=== PATIENT | male | born 1940 | race Caucasian/White ===

== ENCOUNTER 2016-08-24 13:04 | Outpatient (CLI) | payer OTHER | END 2016-08-24 13:05 | LOC: LAB 13:04 | PROVIDERS: ATTEND Internal Medicine Cardiovascular Disease | DX: Z51.81 Encounter for therapeutic drug level monitoring (principal); Z79.01 Long term (current) use of anticoagulants; I48.0 Paroxysmal atrial fibrillation | CPT/HCPCS: 36415; 85610 ==

== ENCOUNTER 2016-09-21 12:27 | Outpatient (CLI) | payer OTHER | END 2016-09-21 12:30 | LOC: LAB 12:27 | PROVIDERS: ATTEND Internal Medicine Cardiovascular Disease | DX: Z51.81 Encounter for therapeutic drug level monitoring (principal); Z79.01 Long term (current) use of anticoagulants; I48.0 Paroxysmal atrial fibrillation | CPT/HCPCS: 36415; 85610 ==

== ENCOUNTER 2016-10-19 12:12 | Outpatient (CLI) | payer OTHER | END 2016-10-19 12:13 | LOC: LAB 12:12 | PROVIDERS: ATTEND Internal Medicine Cardiovascular Disease | DX: Z51.81 Encounter for therapeutic drug level monitoring (principal); Z79.01 Long term (current) use of anticoagulants; I48.0 Paroxysmal atrial fibrillation | CPT/HCPCS: 36415; 85610 ==

== ENCOUNTER 2016-11-02 07:56 | Outpatient (CLI) | payer OTHER | END 2016-11-02 07:57 | LOC: LAB 07:56 | PROVIDERS: ATTEND Internal Medicine Cardiovascular Disease | DX: Z51.81 Encounter for therapeutic drug level monitoring (principal); Z79.01 Long term (current) use of anticoagulants; I48.0 Paroxysmal atrial fibrillation | CPT/HCPCS: 36415; 85610 ==

== ENCOUNTER 2016-11-16 13:30 | Outpatient (CLI) | payer OTHER | END 2016-11-16 13:32 | LOC: LAB 13:30 | PROVIDERS: ATTEND Internal Medicine Cardiovascular Disease | DX: Z51.81 Encounter for therapeutic drug level monitoring (principal); Z79.01 Long term (current) use of anticoagulants; I48.0 Paroxysmal atrial fibrillation | CPT/HCPCS: 36415; 85610 ==

== ENCOUNTER 2016-11-30 10:57 | Outpatient (CLI) | payer OTHER | END 2016-11-30 11:00 | LOC: LAB 10:57 | PROVIDERS: ATTEND Internal Medicine Cardiovascular Disease | DX: Z51.81 Encounter for therapeutic drug level monitoring (principal); Z79.01 Long term (current) use of anticoagulants; I48.0 Paroxysmal atrial fibrillation | CPT/HCPCS: 36415; 85610 ==

== ENCOUNTER 2016-12-14 13:38 | Outpatient (CLI) | payer OTHER | END 2016-12-14 13:40 | LOC: LAB 13:38 | PROVIDERS: ATTEND Internal Medicine Cardiovascular Disease | DX: Z51.81 Encounter for therapeutic drug level monitoring (principal); Z79.01 Long term (current) use of anticoagulants; I48.0 Paroxysmal atrial fibrillation | CPT/HCPCS: 36415; 85610 ==

== ENCOUNTER 2017-01-11 13:13 | Outpatient (CLI) | payer OTHER | END 2017-01-11 13:14 | LOC: LAB 13:13 | PROVIDERS: ATTEND Internal Medicine Cardiovascular Disease | DX: I48.0 Paroxysmal atrial fibrillation (principal) | CPT/HCPCS: 36415; 85610 ==

== ENCOUNTER 2017-02-08 11:58 | Outpatient (CLI) | payer OTHER | END 2017-02-08 12:00 | LOC: LAB 11:58 | PROVIDERS: ATTEND Internal Medicine Cardiovascular Disease | DX: I48.0 Paroxysmal atrial fibrillation (principal) | CPT/HCPCS: 36415; 85610 ==

== ENCOUNTER 2017-03-08 11:39 | Outpatient (CLI) | payer OTHER | END 2017-03-08 11:40 | LOC: LAB 11:39 | PROVIDERS: ATTEND Internal Medicine Cardiovascular Disease | DX: I48.0 Paroxysmal atrial fibrillation (principal) | CPT/HCPCS: 36415; 85610 ==

== ENCOUNTER 2017-03-29 10:56 | Outpatient (CLI) | payer OTHER | END 2017-03-29 10:57 | LOC: LAB 10:56 | PROVIDERS: ATTEND Internal Medicine Cardiovascular Disease | DX: I48.0 Paroxysmal atrial fibrillation (principal) | CPT/HCPCS: 36415; 85610 ==

== ENCOUNTER 2017-04-04 11:17 | Outpatient (CLI) | payer OTHER | END 2017-04-04 11:20 | LOC: LAB 11:17 → EDSTATUS 11:35 | PROVIDERS: ATTEND Internal Medicine Cardiovascular Disease | DX: I48.0 Paroxysmal atrial fibrillation (principal) | CPT/HCPCS: 36415; 85610 ==

== ENCOUNTER 2017-04-11 09:08 | Outpatient (CLI) | payer OTHER | END 2017-04-11 09:10 | LOC: LAB 09:08 | PROVIDERS: ATTEND Internal Medicine Cardiovascular Disease | DX: I48.0 Paroxysmal atrial fibrillation (principal) | CPT/HCPCS: 36415; 85610 ==

== ENCOUNTER 2017-04-25 13:21 | Outpatient (CLI) | payer OTHER | END 2017-04-25 13:22 | LOC: LAB 13:21 | PROVIDERS: ATTEND Internal Medicine Cardiovascular Disease | DX: I48.0 Paroxysmal atrial fibrillation (principal) | CPT/HCPCS: 36415; 85610 ==

== ENCOUNTER 2017-05-02 13:29 | Outpatient (CLI) | payer OTHER | END 2017-05-02 13:30 | LOC: LAB 13:29 | PROVIDERS: ATTEND Internal Medicine Cardiovascular Disease | DX: I48.0 Paroxysmal atrial fibrillation (principal) | CPT/HCPCS: 36415; 85610 ==

== ENCOUNTER 2017-05-16 12:39 | Outpatient (CLI) | payer OTHER | END 2017-05-16 12:40 | LOC: LAB 12:39 | PROVIDERS: ATTEND Internal Medicine Cardiovascular Disease | DX: I48.0 Paroxysmal atrial fibrillation (principal) | CPT/HCPCS: 36415; 85610 ==

== ENCOUNTER 2017-06-27 13:56 | Outpatient (CLI) | payer OTHER | END 2017-06-27 13:57 | LOC: LAB 13:56 | PROVIDERS: ATTEND Internal Medicine Cardiovascular Disease | DX: I48.0 Paroxysmal atrial fibrillation (principal) | CPT/HCPCS: 36415; 85610 ==

== ENCOUNTER 2017-07-25 13:30 | Outpatient (CLI) | payer OTHER | END 2017-07-25 13:32 | LOC: LAB 13:30 | PROVIDERS: ATTEND Internal Medicine Cardiovascular Disease | DX: I48.0 Paroxysmal atrial fibrillation (principal) | CPT/HCPCS: 36415; 85610 ==

== ENCOUNTER 2017-08-14 14:14 | Outpatient (CLI) | payer OTHER ==
[2017-08-11 23:21] VITALS: BP 133/56
== END 2017-08-14 14:15 ==
LOC: LAB 14:14
PROVIDERS: ATTEND Internal Medicine Cardiovascular Disease
DX: Z79.01 Long term (current) use of anticoagulants (principal)
CPT/HCPCS: 36415; 85610

== ENCOUNTER 2017-08-22 12:21 | Outpatient (CLI) | payer OTHER ==
[2017-08-11 23:21] VITALS: BP 133/56
== END 2017-08-22 12:22 ==
LOC: LAB 12:21
PROVIDERS: ATTEND Internal Medicine Cardiovascular Disease
DX: Z79.01 Long term (current) use of anticoagulants (principal)
CPT/HCPCS: 36415; 85610

== ENCOUNTER 2017-08-29 13:22 | Outpatient (CLI) | payer OTHER ==
[2017-08-11 23:21] VITALS: BP 133/56
== END 2017-08-29 13:23 ==
LOC: LAB 13:22
PROVIDERS: ATTEND Internal Medicine Cardiovascular Disease
DX: Z79.01 Long term (current) use of anticoagulants (principal)
CPT/HCPCS: 36415; 85610

== ENCOUNTER 2017-09-05 16:02 | Inpatient (IN) | payer OTHER ==
[2017-09-05 16:30] VITALS: BMI 24.5
--- NOTE | 2017-09-05 16:31 | History and Physical Report ---
History of Present Illnes - History of Present Illness Reason for Visit: dyspnea History of Present Illness: 77-year-old white male who stated he has a history of COPD. Patient normally is on 3 to 4 L of oxygen at home. Patient stated over the last week he is been having some increasing shortness of breath dyspnea. This is gotten a lot worse over the last 3 to 4 days. Patient denies any fever or chills. Patient has a slight nonproductive cough of some clear plan. No hemoptysis has been noted. Patient has been using his albuterol more frequently at home in order to help with his breathing. Patient recently has had some rib fractures. Patient stated he seemed to be healing well from that is not having a lot of pain with breathing at this time. Patient was seen in the office and after ambulation with oxygen pulse ox was 80%. After resting it did come up to 88% on 5 L. Patient was subsequently admitted to the hospital for further evaluation and treatment of his dyspnea. - Past Medical History Cardiac: AFIB, CAD, Hyperlipidemia, Other (Cardiomyopathy) Pulmonary: COPD - Past Surgical History Past Surgical History: Other (Cardiac catheterization with no stenting) - Past Family History Mother Family History: (80yo -MVA) Father Family History: Cancer (lung with metastatic diseaseiki), (82yo) Brother 1 Family History: CAD (CHF), Sister 1 Family History: None Sister 2 Family History: (unknown) - Past Social History Smoke: # pack years (40), Quit Occupation: [employer] Alcohol: None Drugs: None Lives: With Family - Health Maintenance Health Maintenance: Cholesterol, Influenza Vaccine, Pneumococcal Vaccine Influenza Vaccine: Current for this Influenza Season Pneumonia Vaccine: Yes Resuscitation Status: FULL CODE - Unable to Obtain History Unable to Obtain: No Review of Systems - Review of Systems Constitutional: Weakness. negative: Fever, Chills, Sweats Eyes: negative: pain, vision change ENT: negative: Ear Pain, Ear Discharge, Nose Pain, Nose Discharge, Nose Congestion, Mouth Pain, Throat Pain, Throat Swelling Respiratory: Cough, Dry, Shortness of Breath, SOB with Excertion, Wheezing (mild ). negative: Hemoptysis, Pleuritic Pain Cardiovascular: Chest Pain (associated with rib fractures). negative: Palpitations, Orthopnea, Paroxysmal Noc. Dyspnea, Edema Gastrointestinal: negative: Nausea, Vomiting, Abdominal Pain, Diarrhea, Constipation, Melena, Hematochezia Genitourinary: negative: Dysuria, Frequency, Incontinence, Hematuria, Retention Musculoskeletal: Back Pain, Other (chest wall pain). negative: Neck Pain Skin: negative: Rash, Jaundice Neurological: negative: Weakness, Numbness, Incoordination, Change in Speech - Medications/Allergies Allergies/Adverse Reactions: Allergies Allergy/AdvReac Type Severity Reaction Status Date / Time No Known Allergies Allergy Verified 08/11/17 21:00 Exam - Exam Vital Signs: Vital Signs (72 hours) 09/05/17 16:15 Temperature 98.7 F Pulse Rate [ 83 Right] Respiratory 20 Rate Blood Pressure 139/63 [Right Arm] O2 Sat by Pulse 91 L Oximetry General: Alert, Oriented to Person, Oriented to Place, Oriented to Time, Cooperative, Moderate distress HEENT: Atraumatic, PERRLA, EOMI, Mouth Mucous membr. moist/[place], Nose Mucous membr. moist/[place], Edentulous. No: Decreased Hearing Acuity Neck: Normal Range of Motion Carotids: WNL Thyroid: WNL Lungs: Speaks full Sentences, Respiratory Distress, Wheezes (mild with forced expiration), Rhonchi (right side) Cardiovascular: Regular rate, Normal S1, Normal S2, No murmurs Abdomen: Normal bowel sounds, Soft, No tenderness, No hepatospenomegaly, No masses Integumentary: Normal, [place], Warm, Dry Extremities: No clubbing, No cyanosis, No edema, Normal pulses, No tenderness/ swelling Neurological: Normal gait, Normal speech, Strength Equal Bilat, Normal tone, Sensation intact, Cranial nerves 3-12 NL, Reflexes 2+ Psych/Mental Status: Mental status NL, Mood NL, Appropriate Affect, Intact Judgment Assessment/Plan - Assessment/Plan (1) Acute exacerbation of chronic obstructive pulmonary disease (COPD) Status: Acute Current Visit: Yes Assessment: Patient will be started on hHFN treatments and IV steroid therapy. Will maintain patient oxygenation with supplemental oxygen. (2) Atrial fibrillation Status: Chronic Current Visit: No Qualifiers: Atrial fibrillation type: persistent Qualified Code(s): I48.1 - Persistent atrial fibrillation Assessment: We will continue with all medications. Patient will be continued on anticoagulation therapy with Coumadin. Patient INR will be checked and Coumadin dosage adjusted. (3) Cardiomyopathy Status: Chronic Current Visit: Yes Assessment: Continue with home medications. (4) CAD (coronary artery disease) Status: Chronic Current Visit: No Qualifiers: Hoh vs. transplanted heart: [place] heart Associated angina: without angina Assessment: Continue with home medications. (5) Status post cerebrovascular accident Status: Acute Current Visit: Yes Assessment: Continue to monitor for any further developing symptoms. VTE Assessment - RISK FACTOR SCORE VTE RISK FACTOR SCORES: ACUTE RESPIRATORY FAILURE/SEVERE COPD - RISK VTE MODERATE RISK: SCORE OF 2 (RISK PROXIMAL DVT 2-4%) PROPHYAXIS NEEDED ( Patient is currently on anticoagulation therapy.)
[2017-09-05] MEDS ORDERED: traMADol HCL 50 MG TABLET PO PRN (17:00)
[2017-09-05 17:14] LABS: BASOPHILS % 1.2 (0.0-1.5); EOSINOPHILS % 3.1 % (0.0-6.8); MEAN CORPUSCULAR HEMOGLOBIN 32.4 pg (28.0-34.0); MEAN CORPUSCULAR VOLUME 97.2 fl (80.0-100.0); MONOCYTES % 8.9 % (0.0-11.0); NEUTROPHILS # 6.5 # k/uL (1.4-7.7)
[2017-09-05 17:29] LABS: eGFR (African) > 60; eGFR (Non-African) > 60
[2017-09-05] MEDS ORDERED: WARFARIN SODIUM 5 MG TABLET PO ONE (17:45)
[2017-09-05] MEDS: ENOXAPARIN SODIUM 30 MG/0.3 ML DISP.SYRIN SQ SCH (17:48)
[2017-09-05] MEDS: METOPROLOL TARTRATE 25 MG TABLET PO SCH ×2 (17:49→20:07)
[2017-09-05] MEDS ORDERED: WARFARIN SODIUM 2.5 MG TABLET PO ONE ×2 (17:49→17:54)
[2017-09-05] MEDS ORDERED: WARFARIN SODIUM 2.5 MG TABLET PO SCH (18:00)
[2017-09-05] MEDS: IPRATROPIUM/ALBUTEROL SULFATE 3 ML AMPUL.NEB NEB SCH ×3 (18:18→23:24)
--- NOTE | 2017-09-05 18:54 | Diagnostic Imaging Report ---
[facility]MED SURG [facility] [address] [facility] [address] 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 History: Evaluate lung yang. Comparison exam: Rib series from 11 August 2017 Findings: PA lateral chest demonstrate a normal cardiac and mediastinal silhouette. Emphysematous changes. Vascular calcification involving aortic arch. No focal infiltrate. No blunting of the costophrenic margins. Flattening of the diaphragm and lateral view. Osseous structures are appropriate for age. Impression: Emphysematous changes. No acute appearing pulmonary process. Electronically signed on Sep 05, 2017 6:41:45 PM EARLY CHILDHOOD EDUCATION INSTRUCTOR by: Shivam SUAREZ
[2017-09-05] MEDS: SALINE FLUSH 10 ML DISP.SYRIN IV SCH (19:56)
[2017-09-05] MEDS ORDERED: methylPREDNISolone SOD SUCC 125 MG/2 ML VIAL IVP ONE (21:39)
[2017-09-05] MEDS ORDERED: WARFARIN SODIUM 1 MG TABLET PO ONE (22:55)
[2017-09-06] MEDS: IPRATROPIUM/ALBUTEROL SULFATE 3 ML AMPUL.NEB NEB SCH ×5 (05:34→21:29)
--- NOTE | 2017-09-06 08:00 | Inpatient Progress Note ---
Subjective - Required Recertification Statement I anticipate X number of days because-include discharge plan: 2 - Review of Systems Subjective: Patient may be feeling a little better today. Great appetite. Very conversative. Objective - Exam Vitals and I&O: Vital Signs Temp 97.6 F 09/06/17 06:00 Pulse 73 09/06/17 06:00 Resp 22 09/06/17 06:00 BP 139/69 09/06/17 06:00 Pulse Ox 91 L 09/06/17 06:00 Intake & Output 09/05/17 09/05/17 09/06/17 11:59 23:59 11:59 Output Total 1 Balance -1 Weight 93.894 kg 92.079 kg Output: Stool 1 Other: Voiding Method Toilet # Voids 2 # Bowel Movements 0 General: Alert, Oriented to Person, Oriented to Place, Oriented to Time, Cooperative, No acute distress Lungs: Wheezes (faint) Cardiovascular: Regular rate, Irregularly Irregular - Results Results: Laboratory Results WBC 8.20 K/ul (4.00-12.00) 09/05/17 17:00 RBC 3.73 M/ul (3.90-5.20) L 09/05/17 17:00 Hgb 12.1 g/dL (12.0-18.0) 09/05/17 17:00 Hct 36.3 % (37.0-53.0) L 09/05/17 17:00 MCV 97.2 fl (80.0-100.0) 09/05/17 17:00 MCH 32.4 pg (28.0-34.0) 09/05/17 17:00 MCHC 33.3 g/dL (30.0-36.0) 09/05/17 17:00 RDW 13.4 % (11.3-14.3) 09/05/17 17:00 Plt Count 272 K/mm3 (130-400) 09/05/17 17:00 Neut % (Auto) 78.7 % (39.0-79.0) 09/05/17 17:00 Lymph % (Auto) 5.2 % (16.0-50.0) L 09/05/17 17:00 [place] % (Auto) 8.9 % (0.0-11.0) 09/05/17 17:00 Eos % (Auto) 3.1 % (0.0-6.8) 09/05/17 17:00 Baso % (Auto) 1.2 (0.0-1.5) 09/05/17 17:00 Neut # (Auto) 6.5 # k/uL (1.4-7.7) 09/05/17 17:00 Lymph # (Auto) 0.4 # k/uL (0.6-4.0) L 09/05/17 17:00 Bucks # (Auto) 0.7 # k/uL (0.0-0.9) 09/05/17 17:00 Eos # (Auto) 0.3 # k/uL (0.0-0.6) 09/05/17 17:00 Baso # (Auto) 0.1 # k/uL (0.0-0.5) 09/05/17 17:00 Reactive Lymphs % 2.8 % (0.0-5.0) 09/05/17 17:00 Reactive Lymphs # 0.2 # k/uL (0.0-0.8) 09/05/17 17:00 PT 15.6 Seconds (9.4-11.6) H 09/05/17 17:00 INR 1.48 (0.9-1.2) H 09/05/17 17:00 D-Dimer 355 ng/mL (6.0-682) 09/05/17 17:00 Sodium 135 mmol/L (136-145) L 09/05/17 17:00 Potassium 4.5 mmol/L (3.5-5.1) 09/05/17 17:00 Chloride 96 mmol/L (98-107) L 09/05/17 17:00 Carbon Dioxide 28 mmol/L (22-30) 09/05/17 17:00 BUN 21 mg/dL (9-20) H 09/05/17 17:00 Creatinine 1.20 mg/dL (0.66-1.25) 09/05/17 17:00 Estimated Creat Clear 69 09/05/17 17:00 Est GFR ( Amer) > 60 (60-) 09/05/17 17:00 Est GFR (Non-Af Amer) > 60 (60-) 09/05/17 17:00 Glucose 91 mg/dL (74-106) 09/05/17 17:00 Calcium 9.8 mg/dL (8.4-10.2) 09/05/17 17:00 Total Bilirubin 0.3 mg/dL (0.2-1.3) 09/05/17 17:00 AST 27 U/L (15-46) 09/05/17 17:00 ALT 34 U/L (13-69) 09/05/17 17:00 Alkaline Phosphatase 103 U/L (38-126) 09/05/17 17:00 Troponin I < 0.03 ng/mL (0.03-0.06) L 09/05/17 17:00 NT-Pro-B Natriuret Pep 252.9 pg/mL (15.0-450.0) 09/05/17 17:00 Total Protein 7.3 g/dL (6.3-8.2) 09/05/17 17:00 Albumin 3.8 g/dL (3.5-5.0) 09/05/17 17:00 Assessment/Plan - Assessment/Plan (1) Acute exacerbation of chronic obstructive pulmonary disease (COPD) Status: Acute Current Visit: Yes Plan: Continue IV solumedrol and duonebs. Wean O2 to RA when able. (2) Atrial fibrillation Status: Chronic Current Visit: No Qualifiers: Atrial fibrillation type: persistent Qualified Code(s): I48.1 - Persistent atrial fibrillation Narrative Support Text: Check INR this am. D/C lovenox when therapuetic.
[2017-09-06] MEDS ORDERED: WARFARIN SODIUM 2.5 MG TABLET PO SCH ×4 (09:00→18:00)
[2017-09-06] MEDS ORDERED: WARFARIN SODIUM 1 MG TABLET PO SCH (09:00)
[2017-09-06] MEDS ORDERED: traMADol HCL 50 MG TABLET PO PRN (09:33)
[2017-09-06] MEDS: DOCUSATE SODIUM 100 MG CAPSULE PO SCH (09:57)
[2017-09-06] MEDS: ASPIRIN EC 81 MG TABLET.DR PO SCH (09:59)
[2017-09-06] MEDS: TAMSULOSIN HCL 0.4 MG CAP.ER.24H PO SCH (09:59)
[2017-09-06] MEDS: MAGNESIUM OXIDE 400 MG TABLET PO SCH (09:59)
[2017-09-06] MEDS: METOPROLOL TARTRATE 25 MG TABLET PO SCH ×2 (09:59→20:58)
[2017-09-06] MEDS: AMIODARONE HCL 200 MG TABLET PO SCH (09:59)
[2017-09-06] MEDS: SIMVASTATIN 40 MG TABLET PO SCH (10:00)
[2017-09-06] MEDS: FINASTERIDE 5 MG TABLET PO SCH (10:00)
[2017-09-06] MEDS: LISINOPRIL 20 MG TABLET PO SCH (10:00)
[2017-09-06] MEDS: SALINE FLUSH 10 ML DISP.SYRIN IV SCH ×2 (10:03→21:00)
[2017-09-06] MEDS: TUDORZA PRESSAIR 400 MCG INH SCH (10:07)
[2017-09-06] MEDS: methylPREDNISolone SOD SUCC 40 MG/ML VIAL IVP SCH ×2 (10:23→21:00)
[2017-09-06] MEDS: ENOXAPARIN SODIUM 30 MG/0.3 ML DISP.SYRIN SQ SCH (17:58)
[2017-09-07] MEDS: IPRATROPIUM/ALBUTEROL SULFATE 3 ML AMPUL.NEB NEB SCH ×6 (00:59→21:30)
[2017-09-07 07:13] LABS: MEAN CORPUSCULAR HEMOGLOBIN 32.4 pg (28.0-34.0); MEAN CORPUSCULAR VOLUME 96.9 fl (80.0-100.0); eGFR (African) > 60; eGFR (Non-African) > 60
[2017-09-07 08:12] LABS: MONOCYTES % 5 % (0-11); SEGMENTED NEUTROPHILS % 93 % (39-79)
--- NOTE | 2017-09-07 08:40 | Inpatient Progress Note ---
Subjective - Required Recertification Statement I anticipate X number of days because-include discharge plan: 3 - Review of Systems Subjective: Patient feeling about the same. Now coughing up green mucus and blowing profusely out his nose. Objective - Exam Vitals and I&O: Vital Signs Temp 98.1 F 09/07/17 05:25 Pulse 68 09/07/17 05:25 Resp 18 09/07/17 05:25 BP 133/67 09/07/17 05:25 Pulse Ox 95 09/07/17 05:25 Intake & Output 09/06/17 09/06/17 09/07/17 11:59 23:59 11:59 Intake Total 269 229 3363 Output Total 1 Balance 020 001 0193 Weight 92.079 kg 208 kg Intake: Oral 276 550 6910 Output: Stool 1 Other: Voiding Method Toilet Toilet # Voids 2 4 # Bowel Movements 0 General: Alert, Oriented to Person, Oriented to Place, Oriented to Time, Cooperative, No acute distress Lungs: Rhonchi Cardiovascular: Regular rate, Irregularly Irregular - Results Results: Laboratory Results WBC 14.40 K/ul (4.00-12.00) H 09/07/17 06:40 RBC 3.56 M/ul (3.90-5.20) L 09/07/17 06:40 Hgb 11.5 g/dL (12.0-18.0) L 09/07/17 06:40 Hct 34.5 % (37.0-53.0) L 09/07/17 06:40 MCV 96.9 fl (80.0-100.0) 09/07/17 06:40 MCH 32.4 pg (28.0-34.0) 09/07/17 06:40 MCHC 33.4 g/dL (30.0-36.0) 09/07/17 06:40 RDW 13.1 % (11.3-14.3) 09/07/17 06:40 Plt Count 289 K/mm3 (130-400) 09/07/17 06:40 Neut % (Auto) 78.7 % (39.0-79.0) 09/05/17 17:00 Lymph % (Auto) 5.2 % (16.0-50.0) L 09/05/17 17:00 [place] % (Auto) 8.9 % (0.0-11.0) 09/05/17 17:00 Eos % (Auto) 3.1 % (0.0-6.8) 09/05/17 17:00 Baso % (Auto) 1.2 (0.0-1.5) 09/05/17 17:00 Neut # (Auto) 6.5 # k/uL (1.4-7.7) 09/05/17 17:00 Lymph # (Auto) 0.4 # k/uL (0.6-4.0) L 09/05/17 17:00 [place] # (Auto) 0.7 # k/uL (0.0-0.9) 09/05/17 17:00 Eos # (Auto) 0.3 # k/uL (0.0-0.6) 09/05/17 17:00 Baso # (Auto) 0.1 # k/uL (0.0-0.5) 09/05/17 17:00 Seg Neutrophils % 93 % (39-79) H 09/07/17 06:40 Band Neutrophils % 1 % (0-12) 09/07/17 06:40 Lymphocytes % 1 % (16-50) L 09/07/17 06:40 Reactive Lymphs % 2.8 % (0.0-5.0) 09/05/17 17:00 Monocytes % 5 % (0-11) 09/07/17 06:40 Reactive Lymphs # 0.2 # k/uL (0.0-0.8) 09/05/17 17:00 Plt Morphology Comment Normal (NORMAL) 09/07/17 06:40 RBC Morph Comment Normal (NORMAL) 09/07/17 06:40 PT 26.5 Seconds (9.4-11.6) H 09/07/17 06:40 INR 2.50 (0.9-1.2) H 09/07/17 06:40 D-Dimer 355 ng/mL (6.0-682) 09/05/17 17:00 Sodium 133 mmol/L (136-145) L 09/07/17 06:40 Potassium 4.1 mmol/L (3.5-5.1) 09/07/17 06:40 Chloride 96 mmol/L (98-107) L 09/07/17 06:40 Carbon Dioxide 27 mmol/L (22-30) 09/07/17 06:40 BUN 20 mg/dL (9-20) 09/07/17 06:40 Creatinine 0.83 mg/dL (0.66-1.25) 09/07/17 06:40 Estimated Creat Clear 222 09/07/17 06:40 Est GFR ( Amer) > 60 (60-) 09/07/17 06:40 Est GFR (Non-Af Amer) > 60 (60-) 09/07/17 06:40 Glucose 109 mg/dL (74-106) H 09/07/17 06:40 Calcium 9.3 mg/dL (8.4-10.2) 09/07/17 06:40 Total Bilirubin 0.3 mg/dL (0.2-1.3) 09/05/17 17:00 AST 27 U/L (15-46) 09/05/17 17:00 ALT 34 U/L (13-69) 09/05/17 17:00 Alkaline Phosphatase 103 U/L (38-126) 09/05/17 17:00 Troponin I < 0.03 ng/mL (0.03-0.06) L 09/05/17 17:00 NT-Pro-B Natriuret Pep 252.9 pg/mL (15.0-450.0) 09/05/17 17:00 Total Protein 7.3 g/dL (6.3-8.2) 09/05/17 17:00 Albumin 3.8 g/dL (3.5-5.0) 09/05/17 17:00 Assessment/Plan - Assessment/Plan (1) Acute exacerbation of chronic obstructive pulmonary disease (COPD) Status: Acute Current Visit: Yes Plan: I am concerned about pneumonia due to the amount and color of sputum, failure to improve on 2 days of IV steroids, and now WBC is 14,000 (though could be due to steroids). Will repeat CXR. Start rocephin IV. Watch INR closely. (2) Atrial fibrillation Status: Chronic Current Visit: No Qualifiers: Atrial fibrillation type: persistent Qualified Code(s): I48.1 - Persistent atrial fibrillation
[2017-09-07] MEDS ORDERED: cefTRIAXone SODIUM 1 GM VIAL IV SCH (09:00)
[2017-09-07] MEDS: MAGNESIUM OXIDE 400 MG TABLET PO SCH (09:32)
[2017-09-07] MEDS: methylPREDNISolone SOD SUCC 40 MG/ML VIAL IVP SCH ×2 (09:34→20:59)
[2017-09-07] MEDS: DOCUSATE SODIUM 100 MG CAPSULE PO SCH (09:35)
[2017-09-07] MEDS: LISINOPRIL 20 MG TABLET PO SCH (09:35)
[2017-09-07] MEDS: FINASTERIDE 5 MG TABLET PO SCH (09:35)
[2017-09-07] MEDS: ASPIRIN EC 81 MG TABLET.DR PO SCH (09:35)
[2017-09-07] MEDS: AMIODARONE HCL 200 MG TABLET PO SCH (09:35)
[2017-09-07] MEDS: SIMVASTATIN 40 MG TABLET PO SCH (09:36)
[2017-09-07] MEDS: TAMSULOSIN HCL 0.4 MG CAP.ER.24H PO SCH (09:37)
[2017-09-07] MEDS ORDERED: 0.9 % SODIUM CHLORIDE 250 ML IV ONE (09:42)
[2017-09-07] MEDS ORDERED: 0.9 % SODIUM CHLORIDE 100 ML IV ONE (09:42)
[2017-09-07] MEDS: METOPROLOL TARTRATE 25 MG TABLET PO SCH ×2 (09:49→21:12)
[2017-09-07] MEDS: TUDORZA PRESSAIR 400 MCG INH SCH (09:50)
[2017-09-07] MEDS: SALINE FLUSH 10 ML DISP.SYRIN IV SCH ×2 (09:51→21:12)
--- NOTE | 2017-09-07 10:56 | Diagnostic Imaging Report ---
[facility]G [facility] [id number] Replaced By [facility] [address] 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 History: Evaluate lung yang. Comparison exam: 05 September 2016 Findings: PA lateral chest demonstrate a normal cardiac and mediastinal silhouette. Emphysematous changes. Vascular calcification involving aortic arch. Mild right paratracheal haziness. No blunting of the costophrenic margins. Flattening of the diaphragm and lateral view. Osseous structures are appropriate for age. Impression: Emphysematous changes. Possible mild right paratracheal infiltrate. Electronically signed on Sep 07, 2017 10:51:10 AM WEIGHT AND BALANCE CONTROL AGENT by: Shivam SUAREZ
[2017-09-07] MEDS: AZITHROMYCIN 500 MG in 0.9 % SODIUM CHLORIDE 250 ML IV SCH (17:53)
[2017-09-07] MEDS: cefTRIAXone SODIUM 1 GM in 0.9 % SODIUM CHLORIDE 100 ML IV SCH (17:54)
[2017-09-07] MEDS: WARFARIN SODIUM 1 MG TABLET PO SCH (17:55)
[2017-09-08] MEDS: IPRATROPIUM/ALBUTEROL SULFATE 3 ML AMPUL.NEB NEB SCH ×6 (01:56→22:27)
[2017-09-08 07:19] LABS: ADENOVIRUS DNA NEGATIVE (NEGATIVE); BORDETELLA PERTUSSIS DNA NEGATIVE (NEGATIVE); SOURCE: NASOPHARYNGEAL SWAB
--- NOTE | 2017-09-08 07:29 | Inpatient Progress Note ---
Subjective - Required Recertification Statement I anticipate X number of days because-include discharge plan: 3 - Review of Systems Events since last encounter: Mr. Reynolds says that last evening he felt like he is finally turning the corner. He is still coughing up some secretions, but that he feels better. His CXR yesterday showed a paratracheal pneumonia, and Dr. Dugan started him on some azithromycin in addition to his rocephin. He plans to get up and do some walking today. He is afebrile, but has not been able to be weaned from his oxygen. General: Denies: Chills, Night Sweats HEENT: Denies: Head Aches Pulmonary: Dyspnea, Cough Cardiovascular: Denies: Chest Pain Gastrointestinal: Denies: Nausea Genitourinary: Denies: Dysuria Musculoskeletal: Denies: Neck Pain, Shoulder Pain Neurological: Weakness. Denies: Change in Speech, Confusion Objective - Exam Vitals and I&O: Vital Signs Temp 97.5 F L 09/08/17 05:46 Pulse 67 09/08/17 05:46 Resp 20 09/08/17 05:46 BP 151/80 09/08/17 05:46 Pulse Ox 96 09/08/17 05:46 Intake & Output 09/07/17 09/07/17 09/08/17 11:59 23:59 11:59 Intake Total 2300 840 Output Total 1200 Balance 2300 840 -1200 Weight 208 kg 94.347 kg 93.894 kg Intake: Oral 2300 840 Output: Urine 1200 Other: Voiding Method Toilet Toilet General: Alert, Oriented to Person, Oriented to Place, Oriented to Time HEENT: Atraumatic, PERR[place], EOMI Neck: Supple, No JVD Lungs: Wheezes, Prolonged Expiration, Decreased Air Movement Cardiovascular: Irregularly Irregular Abdomen: Normal bowel sounds, Soft, No tenderness Extremities: No clubbing, No cyanosis, No edema Skin: Normal, [place], Warm Neurological: Normal speech Psych/Mental Status: Mental status NL - Results Results: Laboratory Results WBC 14.40 K/ul (4.00-12.00) H 09/07/17 06:40 RBC 3.56 M/ul (3.90-5.20) L 09/07/17 06:40 Hgb 11.5 g/dL (12.0-18.0) L 09/07/17 06:40 Hct 34.5 % (37.0-53.0) L 09/07/17 06:40 MCV 96.9 fl (80.0-100.0) 09/07/17 06:40 MCH 32.4 pg (28.0-34.0) 09/07/17 06:40 MCHC 33.4 g/dL (30.0-36.0) 09/07/17 06:40 RDW 13.1 % (11.3-14.3) 09/07/17 06:40 Plt Count 289 K/mm3 (130-400) 09/07/17 06:40 Neut % (Auto) 78.7 % (39.0-79.0) 09/05/17 17:00 Lymph % (Auto) 5.2 % (16.0-50.0) L 09/05/17 17:00 [place] % (Auto) 8.9 % (0.0-11.0) 09/05/17 17:00 Eos % (Auto) 3.1 % (0.0-6.8) 09/05/17 17:00 Baso % (Auto) 1.2 (0.0-1.5) 09/05/17 17:00 Neut # (Auto) 6.5 # k/uL (1.4-7.7) 09/05/17 17:00 Lymph # (Auto) 0.4 # k/uL (0.6-4.0) L 09/05/17 17:00 Teller # (Auto) 0.7 # k/uL (0.0-0.9) 09/05/17 17:00 Eos # (Auto) 0.3 # k/uL (0.0-0.6) 09/05/17 17:00 Baso # (Auto) 0.1 # k/uL (0.0-0.5) 09/05/17 17:00 Seg Neutrophils % 93 % (39-79) H 09/07/17 06:40 Band Neutrophils % 1 % (0-12) 09/07/17 06:40 Lymphocytes % 1 % (16-50) L 09/07/17 06:40 Reactive Lymphs % 2.8 % (0.0-5.0) 09/05/17 17:00 Monocytes % 5 % (0-11) 09/07/17 06:40 Reactive Lymphs # 0.2 # k/uL (0.0-0.8) 09/05/17 17:00 Plt Morphology Comment Normal (NORMAL) 09/07/17 06:40 RBC Morph Comment Normal (NORMAL) 09/07/17 06:40 PT 26.5 Seconds (9.4-11.6) H 09/07/17 06:40 INR 2.50 (0.9-1.2) H 09/07/17 06:40 D-Dimer 355 ng/mL (6.0-682) 09/05/17 17:00 Sodium 133 mmol/L (136-145) L 09/07/17 06:40 Potassium 4.1 mmol/L (3.5-5.1) 09/07/17 06:40 Chloride 96 mmol/L (98-107) L 09/07/17 06:40 Carbon Dioxide 27 mmol/L (22-30) 09/07/17 06:40 BUN 20 mg/dL (9-20) 09/07/17 06:40 Creatinine 0.83 mg/dL (0.66-1.25) 09/07/17 06:40 Estimated Creat Clear 222 09/07/17 06:40 Est GFR ( Amer) > 60 (60-) 09/07/17 06:40 Est GFR (Non-Af Amer) > 60 (60-) 09/07/17 06:40 Glucose 109 mg/dL (74-106) H 09/07/17 06:40 Calcium 9.3 mg/dL (8.4-10.2) 09/07/17 06:40 Total Bilirubin 0.3 mg/dL (0.2-1.3) 09/05/17 17:00 AST 27 U/L (15-46) 09/05/17 17:00 ALT 34 U/L (13-69) 09/05/17 17:00 Alkaline Phosphatase 103 U/L (38-126) 09/05/17 17:00 Troponin I < 0.03 ng/mL (0.03-0.06) L 09/05/17 17:00 NT-Pro-B Natriuret Pep 252.9 pg/mL (15.0-450.0) 09/05/17 17:00 Total Protein 7.3 g/dL (6.3-8.2) 09/05/17 17:00 Albumin 3.8 g/dL (3.5-5.0) 09/05/17 17:00 Adenovirus DNA Negative (NEGATIVE) 09/07/17 11:45 B. pertussis DNA (PCR) Negative (NEGATIVE) 09/07/17 11:45 C. pneumoniae DNA (PCR) Negative (NEGATIVE) 09/07/17 11:45 Coronavirus OC43 (PCR) Negative (NEGATIVE) 09/07/17 11:45 Coronavirus HKU1 (PCR) Negative (NEGATIVE) 09/07/17 11:45 Coronavirus 229E (PCR) Negative (NEGATIVE) 09/07/17 11:45 Coronavirus NL63 (PCR) Negative (NEGATIVE) 09/07/17 11:45 Human Metapneumovir RNA Negative (NEGATIVE) 09/07/17 11:45 Influenza A (H1) PCR Negative (NEGATIVE) 09/07/17 11:45 Influenza A (H1N1) Ab Negative (NEGATIVE) 09/07/17 11:45 Influenza A (H1N1) Ag Negative (NEGATIVE) 09/07/17 11:45 Influenza A (H3) Ab Negative (NEGATIVE) 09/07/17 11:45 H.influenzae Type B Ab Negative (NEGATIVE) 09/07/17 11:45 M.pneumoniae DNA (PCR) Negative (NEGATIVE) 09/07/17 11:45 Parainfluenza 1 (PCR) Negative (NEGATIVE) 09/07/17 11:45 Parainfluenza 2 (PCR) Negative (NEGATIVE) 09/07/17 11:45 Parainfluenza 3 (PCR) Negative (NEGATIVE) 09/07/17 11:45 Parainfluenza 4 (PCR) Negative (NEGATIVE) 09/07/17 11:45 RSV (PCR) Positive (NEGATIVE) H 09/07/17 11:45 Rhinovirus (PCR) Negative (NEGATIVE) 09/07/17 11:45 Virus Source Nasopharyngeal swab 09/07/17 11:45 Assessment/Plan - Assessment/Plan (1) Acute exacerbation of chronic obstructive pulmonary disease (COPD) Status: Acute Current Visit: Yes Assessment: Steroids/nebulizers/supplemental O2 (2) Atrial fibrillation Status: Chronic Current Visit: No Qualifiers: Atrial fibrillation type: persistent Qualified Code(s): I48.1 - Persistent atrial fibrillation Assessment: Chronic Plan: Follow INRs closely due to use of macrolide. It was 2.5 yesterday. I have ordered another for tomorrow am. (3) Pneumonia Status: Acute Current Visit: Yes Qualifiers: Pneumonia type: due to unspecified organism Laterality: unspecified laterality Lung location: unspecified part of lung Qualified Code(s): J18.9 - Pneumonia, unspecified organism Assessment: continue azithromycin and ceftriaxone/supplemental O2/steroids/nebulizers
[2017-09-08 07:37] LABS: MEAN CORPUSCULAR HEMOGLOBIN 32.3 pg (28.0-34.0); MEAN CORPUSCULAR VOLUME 97.6 fl (80.0-100.0)
[2017-09-08 08:05] LABS: eGFR (African) > 60; eGFR (Non-African) > 60
[2017-09-08 08:46] LABS: MONOCYTES % 2 % (0-11); SEGMENTED NEUTROPHILS % 92 % (39-79)
[2017-09-08] MEDS: TAMSULOSIN HCL 0.4 MG CAP.ER.24H PO SCH (09:14)
[2017-09-08] MEDS: DOCUSATE SODIUM 100 MG CAPSULE PO SCH (09:15)
[2017-09-08] MEDS: METOPROLOL TARTRATE 25 MG TABLET PO SCH ×2 (09:16→20:33)
[2017-09-08] MEDS: MAGNESIUM OXIDE 400 MG TABLET PO SCH (09:16)
[2017-09-08] MEDS: FINASTERIDE 5 MG TABLET PO SCH (09:17)
[2017-09-08] MEDS: TUDORZA PRESSAIR 400 MCG INH SCH (09:17)
[2017-09-08] MEDS: LISINOPRIL 20 MG TABLET PO SCH (09:17)
[2017-09-08] MEDS: AMIODARONE HCL 200 MG TABLET PO SCH (09:17)
[2017-09-08] MEDS: ASPIRIN EC 81 MG TABLET.DR PO SCH (09:18)
[2017-09-08] MEDS: SIMVASTATIN 40 MG TABLET PO SCH (09:18)
[2017-09-08] MEDS: methylPREDNISolone SOD SUCC 40 MG/ML VIAL IVP SCH ×2 (09:19→20:13)
[2017-09-08] MEDS: SALINE FLUSH 10 ML DISP.SYRIN IV SCH (13:23)
[2017-09-08] MEDS ORDERED: 0.9 % SODIUM CHLORIDE 100 ML IV ONE (14:52)
[2017-09-08] MEDS ORDERED: cefTRIAXone SODIUM 1 GM VIAL ONE (14:52)
[2017-09-08] MEDS: cefTRIAXone SODIUM 1 GM in 0.9 % SODIUM CHLORIDE 100 ML IV SCH (15:54)
[2017-09-08] MEDS: AZITHROMYCIN 500 MG in 0.9 % SODIUM CHLORIDE 250 ML IV SCH (16:10)
[2017-09-08] MEDS: WARFARIN SODIUM 1 MG TABLET PO SCH (17:15)
[2017-09-09] MEDS: IPRATROPIUM/ALBUTEROL SULFATE 3 ML AMPUL.NEB NEB SCH ×4 (01:49→13:15)
[2017-09-09] MEDS: METOPROLOL TARTRATE 25 MG TABLET PO SCH (09:25)
[2017-09-09] MEDS: DOCUSATE SODIUM 100 MG CAPSULE PO SCH (09:26)
[2017-09-09] MEDS: SALINE FLUSH 10 ML DISP.SYRIN IV SCH (09:26)
[2017-09-09] MEDS: MAGNESIUM OXIDE 400 MG TABLET PO SCH (09:27)
[2017-09-09] MEDS: TAMSULOSIN HCL 0.4 MG CAP.ER.24H PO SCH (09:27)
[2017-09-09] MEDS: AMIODARONE HCL 200 MG TABLET PO SCH (09:27)
[2017-09-09] MEDS: ASPIRIN EC 81 MG TABLET.DR PO SCH (09:27)
[2017-09-09] MEDS: LISINOPRIL 20 MG TABLET PO SCH (09:28)
[2017-09-09] MEDS: SIMVASTATIN 40 MG TABLET PO SCH (09:28)
[2017-09-09] MEDS: TUDORZA PRESSAIR 400 MCG INH SCH (09:28)
[2017-09-09] MEDS: FINASTERIDE 5 MG TABLET PO SCH (09:29)
[2017-09-09] MEDS: methylPREDNISolone SOD SUCC 40 MG/ML VIAL IVP SCH ×2 (09:31→16:06)
--- NOTE | 2017-09-09 09:40 | Discharge Summary ---
Discharge Summary - Discharge Sumary History of Present Illness: 77-year-old white male who stated he has a history of COPD. Patient normally is on 3 to 4 L of oxygen at home. Patient stated over the last week he is been having some increasing shortness of breath dyspnea. This is gotten a lot worse over the last 3 to 4 days. Patient denies any fever or chills. Patient has a slight nonproductive cough of some clear plan. No hemoptysis has been noted. Patient has been using his albuterol more frequently at home in order to help with his breathing. Patient recently has had some rib fractures. Patient stated he seemed to be healing well from that is not having a lot of pain with breathing at this time. Patient was seen in the office and after ambulation with oxygen pulse ox was 80%. After resting it did come up to 88% on 5 L. Patient was subsequently admitted to the hospital for further evaluation and treatment of his dyspnea. Condition at Discharge: Stable Home Medications: Ambulatory Orders Medication Instructions Recorded Amiodarone Hcl 200 mg PO DAILY u2 07/22/13 Aspirin [Aspirin EC] 81 mg PO DAILY u2 07/22/13 Docusate Sodium 100 mg PO DAILY av 07/22/13 Lisinopril 20 mg PO DAILY u2 07/22/13 Magnesium Oxide 400 mg PO DAILY u2 07/22/13 Metoprolol Tartrate [Lopressor] 25 mg PO BID u2 07/22/13 Simvastatin 40 mg PO DAILY u2 11/17/14 Finasteride [Proscar] 5 mg PO D 08/11/17 Amoxicillin/Potassium Clav 1 each PO BID #14 tablet 09/09/17 [Augmentin 875-125 Tablet] Budesonide [Pulmicort] 0.5 mg IH BID #60 ml 09/09/17 predniSONE [Deltasone] 10 mg PO DAILY #30 tablet 09/09/17 Consultations this Visit: None Procedures this Visit: None Allergies/Adverse Reactions: Allergies Allergy/AdvReac Type Severity Reaction Status Date / Time No Known Allergies Allergy Verified 08/11/17 21:00 Patient Problems: Current Active Problems Problem Status Onset Acute exacerbation of chronic obstructive pulmonary disease (COPD) Acute Pneumonia Acute Status post cerebrovascular accident Acute Cardiomyopathy Chronic Discharge Summary: Patient admitted with COPD exacerbation on IV steroids, increased O2 from his baseline of 4 liters. After 24 hours of IV steroids, he didn't improve as we had hoped so we repeated CXR - which showed a possible R hilar infiltrate. Rocephin and zithromax started. Then patient began coughing up copious green drainage. Due to already being on antibiotics we did not sent cultures. His RVP showed RSV. Patient began to improve after several days. Coumadin managment done. INR at 3.4 on d/c so will hold today's dose. Due for PT on . Will do prednisone taper and complete 10 days of antibiotics starting as he was given his doses prior to discharge. Hospital Course: Discharge DX. COPD exacerbation. RSV. Pneumonia. Cardiomyopathy. Disposition - Home
[2017-09-09] MEDS ORDERED: cefTRIAXone SODIUM 1 GM VIAL ONE (11:31)
[2017-09-09] MEDS ORDERED: 0.9 % SODIUM CHLORIDE 250 ML IV ONE (11:32)
[2017-09-09] MEDS ORDERED: 0.9 % SODIUM CHLORIDE 100 ML IV ONE (11:32)
[2017-09-09] MEDS: AZITHROMYCIN 500 MG in 0.9 % SODIUM CHLORIDE 250 ML IV SCH (14:17)
[2017-09-09] MEDS: cefTRIAXone SODIUM 1 GM in 0.9 % SODIUM CHLORIDE 100 ML IV SCH (16:07)
[2017-09-09 17:19] VITALS: BP 138/63
== END 2017-09-09 17:17 | disposition home or self-care (01) | DRG 190 ==
LOC: SOUTH 16:02
PROVIDERS: ADMIT Family Medicine; ATTEND Family Medicine
DX: J44.1 Chronic obstructive pulmonary disease with (acute) exacerbation (principal); J12.1 Respiratory syncytial virus pneumonia; I42.9 Cardiomyopathy, unspecified; I48.91 Unspecified atrial fibrillation; Z87.891 Personal history of nicotine dependence; I25.10 Atherosclerotic heart disease of native coronary artery without angina pectoris; E78.5 Hyperlipidemia, unspecified
CPT/HCPCS: 36415; 71020; 80048; 80053; 83880; 84484; 85025; 85379; 85610; 87486; 87581; 87633; 87798; 93005; J0456; J0696; J1030; J1650; J2930; J7050; 99222; 99232; 99238; J2920; S1016

== ENCOUNTER 2017-09-12 11:33 | Outpatient (CLI) | payer OTHER | END 2017-09-12 11:35 | LOC: LAB 11:33 | PROVIDERS: ATTEND Internal Medicine Cardiovascular Disease | DX: Z79.01 Long term (current) use of anticoagulants (principal) | CPT/HCPCS: 36415; 85610 ==

== ENCOUNTER 2017-09-17 11:29 | Outpatient (CLI) | payer OTHER | END 2017-09-17 11:30 | LOC: LAB 11:29 | PROVIDERS: ATTEND Internal Medicine Cardiovascular Disease | DX: Z79.01 Long term (current) use of anticoagulants (principal) | CPT/HCPCS: 36415; 85610 ==

== ENCOUNTER 2017-09-20 11:28 | Outpatient (CLI) | payer OTHER | END 2017-09-20 11:30 | LOC: LAB 11:28 | PROVIDERS: ATTEND Internal Medicine Cardiovascular Disease | DX: Z79.01 Long term (current) use of anticoagulants (principal) | CPT/HCPCS: 36415; 85610 ==

== ENCOUNTER 2017-10-04 11:43 | Outpatient (CLI) | payer OTHER | END 2017-10-04 11:44 | LOC: LAB 11:43 | PROVIDERS: ATTEND Internal Medicine Cardiovascular Disease | DX: Z79.01 Long term (current) use of anticoagulants (principal) | CPT/HCPCS: 36415; 85610 ==

== ENCOUNTER 2017-11-01 14:20 | Outpatient (CLI) | payer OTHER | END 2017-11-01 14:30 | LOC: LAB 14:20 | PROVIDERS: ATTEND Internal Medicine Cardiovascular Disease | DX: Z79.01 Long term (current) use of anticoagulants (principal) | CPT/HCPCS: 36415; 85610 ==

== ENCOUNTER 2017-11-15 12:34 | Outpatient (CLI) | payer OTHER | END 2017-11-15 12:35 | LOC: LAB 12:34 | PROVIDERS: ATTEND Internal Medicine Cardiovascular Disease | DX: Z79.01 Long term (current) use of anticoagulants (principal) | CPT/HCPCS: 36415; 85610 ==

== ENCOUNTER 2017-11-23 08:08 | Outpatient (CLI) | payer OTHER ==
[2017-11-23 09:15] LABS: eGFR (African) > 60; eGFR (Non-African) > 60
== END 2017-11-23 08:10 ==
LOC: LAB 08:08
PROVIDERS: ATTEND Internal Medicine Cardiovascular Disease
DX: I25.10 Atherosclerotic heart disease of native coronary artery without angina pectoris (principal); I25.5 Ischemic cardiomyopathy
CPT/HCPCS: 36415; 80053; 80061; 84443

== ENCOUNTER 2017-11-29 13:31 | Outpatient (CLI) | payer OTHER | END 2017-11-29 13:32 | LOC: LAB 13:31 | PROVIDERS: ATTEND Internal Medicine Cardiovascular Disease | DX: Z79.01 Long term (current) use of anticoagulants (principal) | CPT/HCPCS: 36415; 85610 ==

== ENCOUNTER 2017-12-06 12:10 | Outpatient (CLI) | payer OTHER | END 2017-12-06 12:20 | LOC: LAB 12:10 | PROVIDERS: ATTEND Internal Medicine Cardiovascular Disease | DX: Z79.01 Long term (current) use of anticoagulants (principal) | CPT/HCPCS: 36415; 85610 ==

== ENCOUNTER 2017-12-13 11:58 | Outpatient (CLI) | payer OTHER | END 2017-12-13 12:00 | LOC: LAB 11:58 | PROVIDERS: ATTEND Internal Medicine Cardiovascular Disease | DX: Z79.01 Long term (current) use of anticoagulants (principal) | CPT/HCPCS: 36415; 85610 ==

== ENCOUNTER 2017-12-20 11:36 | Outpatient (CLI) | payer OTHER | END 2017-12-20 11:37 | LOC: LAB 11:36 | PROVIDERS: ATTEND Internal Medicine Cardiovascular Disease | DX: Z79.01 Long term (current) use of anticoagulants (principal) | CPT/HCPCS: 36415; 85610 ==

== ENCOUNTER 2017-12-27 12:14 | Outpatient (CLI) | payer OTHER | END 2017-12-27 12:16 | LOC: LAB 12:14 | PROVIDERS: ATTEND Internal Medicine Cardiovascular Disease | DX: Z79.01 Long term (current) use of anticoagulants (principal) | CPT/HCPCS: 36415; 85610 ==

== ENCOUNTER 2018-01-03 12:16 | Outpatient (CLI) | payer OTHER | END 2018-01-03 12:17 | LOC: LAB 12:16 | PROVIDERS: ATTEND Internal Medicine Cardiovascular Disease | DX: Z79.01 Long term (current) use of anticoagulants (principal) | CPT/HCPCS: 36415; 85610 ==

== ENCOUNTER 2018-01-10 12:58 | Outpatient (CLI) | payer OTHER | END 2018-01-10 14:17 | LOC: LAB 12:58 | PROVIDERS: ATTEND Internal Medicine Cardiovascular Disease | DX: Z79.01 Long term (current) use of anticoagulants (principal) | CPT/HCPCS: 36415; 85610 ==

== ENCOUNTER 2018-01-21 15:55 | Outpatient (CLI) | payer OTHER ==
--- NOTE | 2018-01-21 16:50 | Diagnostic Imaging Report ---
GENEVA FAGAN [facility] [address] [facility] [address] [address] Report Submission Date: Jan 21, 2018 4:48:29 PM CDT Patient Study Name: CAPO HILLIARD Date: Jan 21, 2018 4:08:25 PM CDT Modality Type: DX Gender: M Description: SHOULDER : 42 Institution: [facility] Physician: GENEVA FAGAN Examination: Plain film right shoulder History: PAIN X 1 MONTH WITH NO KNOWN INJURY (Hx) Comparison exams: None provided Findings: 3 views of the right shoulder demonstrate normal cortical margins. Osteopenia. No evidence for fracture or dislocation. Acromioclavicular joint degenerative disease. Old rib fractures. No soft tissue abnormality Impression: Osteopenia. Acromioclavicular joint degenerative changes. No fracture. Electronically signed on Jan 21, 2018 4:48:29 PM CDT by: Shivam SUAREZ
== END 2018-01-21 15:56 ==
LOC: RAD 15:55
PROVIDERS: ATTEND Family Medicine
DX: M25.511 Pain in right shoulder (principal)
CPT/HCPCS: 73030

== ENCOUNTER 2018-01-24 13:35 | Outpatient (CLI) | payer OTHER | END 2018-01-24 13:36 | LOC: LAB 13:35 | PROVIDERS: ATTEND Internal Medicine Cardiovascular Disease | DX: Z79.01 Long term (current) use of anticoagulants (principal) | CPT/HCPCS: 36415; 85610 ==

== ENCOUNTER 2018-02-07 13:41 | Outpatient (CLI) | payer OTHER | END 2018-02-07 13:50 | LOC: LAB 13:41 | PROVIDERS: ATTEND Internal Medicine Cardiovascular Disease | DX: Z79.01 Long term (current) use of anticoagulants (principal) | CPT/HCPCS: 36415; 85610 ==

== ENCOUNTER 2018-03-07 12:07 | Outpatient (CLI) | payer OTHER | END 2018-03-07 14:02 | LOC: LAB 12:07 | PROVIDERS: ATTEND Family Medicine | DX: Z79.01 Long term (current) use of anticoagulants (principal) | CPT/HCPCS: 36415; 85610 ==

== ENCOUNTER 2018-04-04 13:05 | Outpatient (CLI) | payer OTHER | END 2018-04-04 13:06 | LOC: LAB 13:05 | PROVIDERS: ATTEND Internal Medicine Cardiovascular Disease | DX: Z79.01 Long term (current) use of anticoagulants (principal) | CPT/HCPCS: 36415; 85610 ==

== ENCOUNTER 2018-04-18 11:48 | Outpatient (CLI) | payer OTHER | END 2018-04-18 11:50 | LOC: LAB 11:48 | PROVIDERS: ATTEND Internal Medicine Cardiovascular Disease | DX: Z79.01 Long term (current) use of anticoagulants (principal) | CPT/HCPCS: 36415; 85610 ==

== ENCOUNTER 2018-05-02 13:38 | Outpatient (CLI) | payer OTHER | END 2018-05-02 13:40 | LOC: LAB 13:38 | PROVIDERS: ATTEND Internal Medicine Cardiovascular Disease | DX: Z79.01 Long term (current) use of anticoagulants (principal) | CPT/HCPCS: 36415; 85610 ==

== ENCOUNTER 2018-05-16 13:18 | Outpatient (CLI) | payer OTHER | END 2018-05-16 13:20 | LOC: LAB 13:18 | PROVIDERS: ATTEND Internal Medicine Cardiovascular Disease | DX: Z79.01 Long term (current) use of anticoagulants (principal) | CPT/HCPCS: 36415; 85610 ==

== ENCOUNTER 2018-06-10 14:17 | Outpatient (CLI) | payer OTHER | END 2018-06-10 14:23 | LOC: LAB 14:17 | PROVIDERS: ATTEND Internal Medicine Cardiovascular Disease | DX: Z79.01 Long term (current) use of anticoagulants (principal) | CPT/HCPCS: 36415; 85610 ==

== ENCOUNTER 2018-07-23 11:44 | Outpatient (CLI) | payer OTHER | END 2018-07-23 11:45 | LOC: LAB 11:44 | PROVIDERS: ATTEND Internal Medicine Cardiovascular Disease | DX: Z79.01 Long term (current) use of anticoagulants (principal) | CPT/HCPCS: 36415; 85610 ==

== ENCOUNTER 2018-08-22 14:14 | Outpatient (CLI) | payer OTHER | END 2018-08-22 14:20 | LOC: LAB 14:14 | PROVIDERS: ATTEND Internal Medicine Cardiovascular Disease | DX: Z79.01 Long term (current) use of anticoagulants (principal); Z51.81 Encounter for therapeutic drug level monitoring | CPT/HCPCS: 36415; 85610 ==

== ENCOUNTER 2018-09-19 14:46 | Outpatient (CLI) | payer OTHER | END 2018-09-19 14:55 | LOC: LAB 14:46 | PROVIDERS: ATTEND Internal Medicine Cardiovascular Disease | DX: Z79.01 Long term (current) use of anticoagulants (principal); Z51.81 Encounter for therapeutic drug level monitoring | CPT/HCPCS: 36415; 85610 ==

== ENCOUNTER 2018-10-18 08:03 | Outpatient (CLI) | payer OTHER | END 2018-10-18 08:10 | LOC: LAB 08:03 | PROVIDERS: ATTEND Internal Medicine Cardiovascular Disease | DX: Z79.01 Long term (current) use of anticoagulants (principal) | CPT/HCPCS: 36415; 85610 ==

== ENCOUNTER 2018-11-04 11:46 | Outpatient (CLI) | payer OTHER | END 2018-11-04 11:48 | LOC: LAB 11:46 | PROVIDERS: ATTEND Internal Medicine Cardiovascular Disease | DX: Z79.01 Long term (current) use of anticoagulants (principal) | CPT/HCPCS: 36415; 85610 ==

== ENCOUNTER 2018-11-11 13:58 | Outpatient (CLI) | payer OTHER | END 2018-11-11 14:00 | LOC: LAB 13:58 | PROVIDERS: ATTEND Internal Medicine Cardiovascular Disease | DX: Z79.01 Long term (current) use of anticoagulants (principal) | CPT/HCPCS: 36415; 85610 ==

== ENCOUNTER 2018-11-25 12:36 | Outpatient (CLI) | payer OTHER | END 2018-11-25 12:46 | LOC: LAB 12:36 | PROVIDERS: ATTEND Internal Medicine Cardiovascular Disease | DX: Z79.01 Long term (current) use of anticoagulants (principal) | CPT/HCPCS: 36415; 85610 ==

== ENCOUNTER 2018-12-09 14:48 | Outpatient (CLI) | payer OTHER | END 2018-12-09 14:50 | LOC: LAB 14:48 | PROVIDERS: ATTEND Internal Medicine Cardiovascular Disease | DX: Z79.01 Long term (current) use of anticoagulants (principal) | CPT/HCPCS: 36415; 85610 ==

== ENCOUNTER 2019-01-08 14:32 | Outpatient (CLI) | payer OTHER | END 2019-01-08 14:34 | LOC: LAB 14:32 | PROVIDERS: ATTEND Internal Medicine Cardiovascular Disease | DX: Z79.01 Long term (current) use of anticoagulants (principal) | CPT/HCPCS: 36415; 85610 ==

== ENCOUNTER 2019-01-23 14:27 | Outpatient (CLI) | payer OTHER | END 2019-01-23 14:32 | disposition home or self-care (01) | LOC: LAB 14:27 | PROVIDERS: ATTEND Internal Medicine Cardiovascular Disease | DX: Z79.01 Long term (current) use of anticoagulants (principal); Z51.81 Encounter for therapeutic drug level monitoring | CPT/HCPCS: 36415; 85610 ==

== ENCOUNTER 2019-02-06 13:06 | Outpatient (CLI) | payer OTHER | END 2019-02-06 13:08 | LOC: LAB 13:06 | PROVIDERS: ATTEND Internal Medicine Cardiovascular Disease | DX: Z79.01 Long term (current) use of anticoagulants (principal); Z51.81 Encounter for therapeutic drug level monitoring | CPT/HCPCS: 36415; 85610 ==

== ENCOUNTER 2019-02-13 11:28 | Outpatient (CLI) | payer OTHER | END 2019-02-13 11:30 | LOC: LAB 11:28 | PROVIDERS: ATTEND Internal Medicine Cardiovascular Disease | DX: Z79.01 Long term (current) use of anticoagulants (principal); Z51.81 Encounter for therapeutic drug level monitoring | CPT/HCPCS: 36415; 85610 ==

== ENCOUNTER 2019-02-27 11:38 | Outpatient (CLI) | payer OTHER | END 2019-02-27 11:40 | LOC: LAB 11:38 | PROVIDERS: ATTEND Internal Medicine Cardiovascular Disease | DX: Z79.01 Long term (current) use of anticoagulants (principal); Z51.81 Encounter for therapeutic drug level monitoring | CPT/HCPCS: 36415; 85610 ==

== ENCOUNTER 2019-03-27 12:57 | Outpatient (CLI) | payer OTHER | END 2019-03-27 13:00 | LOC: LAB 12:57 | PROVIDERS: ATTEND Internal Medicine Cardiovascular Disease | DX: Z51.81 Encounter for therapeutic drug level monitoring (principal); Z79.01 Long term (current) use of anticoagulants | CPT/HCPCS: 36415; 85610 ==

== ENCOUNTER 2019-04-24 11:01 | Outpatient (CLI) | payer OTHER ==
--- NOTE | 2019-04-24 11:59 | Diagnostic Imaging Report ---
GENEVA FAGAN [facility] [address] [facility], [facility] [address] [address] Report Submission Date: Apr 24, 2019 11:57:00 AM CDT Patient Study Name: CAPO HILLIARD Date: Apr 24, 2019 11:01:33 AM CDT Modality Type: DX Gender: M Description: KNEE 3 VIEWS : 42 Institution: [facility] Physician: GENEVA FAGAN 3 views of the right knee History: RT KNEE, PAIN IN RT KNEE AND RT KNEE BUCKLING, NO KNOWN INJURY No comparison studies Bones are demineralized limiting evaluation. Suprapatellar effusion is present. Minimal lateral subluxation of the patella. Ossification of the interosseous membrane at the proximal tibia/fibula Impression: 1. No evidence of acute fracture or dislocation. Demineralized bones limit evaluation 2. Suprapatellar effusion is present. Minimal lateral subluxation of the patella Electronically signed on Apr 24, 2019 11:57:00 AM CDT by: Wendy SUAREZ
== END 2019-04-24 11:03 ==
LOC: RAD 11:01
PROVIDERS: ATTEND Family Medicine
DX: Z51.81 Encounter for therapeutic drug level monitoring (principal); M25.361 Other instability, right knee; Z79.01 Long term (current) use of anticoagulants
CPT/HCPCS: 36415; 73562; 85610

== ENCOUNTER 2019-05-22 14:40 | Outpatient (CLI) | payer OTHER ==
[2019-06-02 14:51] LABS: TSH 2.84 mIU/l (0.465-4.685)
== END 2019-05-22 14:50 ==
LOC: LAB 14:40
PROVIDERS: ATTEND Internal Medicine Cardiovascular Disease
DX: Z79.01 Long term (current) use of anticoagulants (principal); Z51.81 Encounter for therapeutic drug level monitoring
CPT/HCPCS: 36415; 84439; 84443; 85610

== ENCOUNTER 2019-06-05 14:08 | Outpatient (CLI) | payer OTHER ==
--- NOTE | 2019-06-05 14:39 | Diagnostic Imaging Report ---
PATIENT MR#: [id number] PATIENT PATIENT NAME: CAPO HILLIARD DATE OF : 1940 REFERRING PHYSICIAN: Jr Canales EXAM DATE: 06/05/2019 ACCESSION NUMBER: [id number] EXAM DESCRIPTION: RIBS UNILAT 2 VIEWS Exam: Left ribs. History: Left lower rib pain for 5 days. AP and oblique views of the left hemithorax are submitted. Old fractures of the 3rd, 4th, 5th and 6th ribs are noted. There is subtle cortical irregularity see n in 1 of the views submitted it the left 8th rib which may represent nondisplaced fractures. No pleural or periosteal r eaction is seen. No pneumothorax is identified. Impression: Subtle acute fracture of the left 8th rib is noted. Old fractures of the 3rd, 4th, 5th and 6th ribs. Read by: Dr. Andre Fitch Transcribed by: Transcribed Date: Electronically signed by: Dr. Andre Fitch Date signed: 06/05/2019 2:38:36 PM
== END 2019-06-05 14:13 ==
LOC: LAB 14:08
PROVIDERS: ATTEND Internal Medicine Cardiovascular Disease
DX: R07.81 Pleurodynia (principal)
CPT/HCPCS: 36415; 71100; 85610

== ENCOUNTER 2019-06-12 13:24 | Outpatient (CLI) | payer OTHER | END 2019-06-12 13:29 | LOC: LAB 13:24 | PROVIDERS: ATTEND Internal Medicine Cardiovascular Disease | DX: Z51.81 Encounter for therapeutic drug level monitoring (principal); Z79.01 Long term (current) use of anticoagulants | CPT/HCPCS: 36415; 85610 ==

== ENCOUNTER 2019-07-08 14:03 | Outpatient (CLI) | payer OTHER | END 2019-07-08 14:10 | LOC: LAB 14:03 | PROVIDERS: ATTEND Internal Medicine Cardiovascular Disease | DX: Z51.81 Encounter for therapeutic drug level monitoring (principal); Z79.01 Long term (current) use of anticoagulants | CPT/HCPCS: 36415; 85610 ==

== ENCOUNTER 2019-07-30 13:22 | Outpatient (CLI) | payer OTHER | END 2019-07-30 13:27 | LOC: LAB 13:22 | PROVIDERS: ATTEND Internal Medicine Cardiovascular Disease | DX: Z51.81 Encounter for therapeutic drug level monitoring (principal); Z79.01 Long term (current) use of anticoagulants | CPT/HCPCS: 36415; 85610 ==

== ENCOUNTER 2019-08-14 12:35 | Outpatient (CLI) | payer OTHER | END 2019-08-14 12:40 | LOC: LAB 12:35 | PROVIDERS: ATTEND Internal Medicine Cardiovascular Disease | DX: Z51.81 Encounter for therapeutic drug level monitoring (principal); Z79.01 Long term (current) use of anticoagulants | CPT/HCPCS: 36415; 85610 ==

== ENCOUNTER 2019-08-28 09:47 | Outpatient (CLI) | payer OTHER | END 2019-08-28 09:52 | LOC: LAB 09:47 | PROVIDERS: ATTEND Internal Medicine Cardiovascular Disease | DX: Z51.81 Encounter for therapeutic drug level monitoring (principal); Z79.01 Long term (current) use of anticoagulants | CPT/HCPCS: 36415; 85610 ==